=== PATIENT | male | born 1985 | race Caucasian/White ===

== ENCOUNTER 2017-03-08 04:29 | Emergency (ER) | payer OTHER ==
[2017-03-08 04:37] VITALS: RESP 16; TEMP 98.8
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
[2017-03-08] MEDS ORDERED: ACETAMINOPHEN 500 MG TAB PO ONE (04:49)
[2017-03-08 07:33] VITALS: BP 136/81; PULSE 80; O2SAT 94
== END 2017-03-08 07:33 | disposition home or self-care (01) ==
DX: S70.02XA Contusion of left hip, initial encounter (principal); V29.3XXA Motorcycle rider (driver) (passenger) injured in unspecified nontraffic accident, initial encounter; Y92.482 Bike path as the place of occurrence of the external cause; Y93.55 Activity, bike riding